=== PATIENT | male | born 1980 | race Caucasian/White ===

== ENCOUNTER → 2024-03-16 07:33 | Outpatient (CLI) | payer OTHER, SELFPAY ==
[2024-03-16 08:37] LABS: Influenza A - CEPHEID Flu A NEGATIVE (NEGATIVE); Influenza B - CEPHEID Flu B NEGATIVE (NEGATIVE); Respiratory Syncytial Virus Negative (Negative)
[2024-03-16 08:43] LABS: COVID-19 CEPHEID 4-PLEX PCR POSITIVE (Negative)
== END ==
PROVIDERS: Referring Provider Nurse Practitioner Family; Visit Provider Nurse Practitioner Family
DX: R50.9 Fever, unspecified (principal); J02.9 Acute pharyngitis, unspecified
CPT/HCPCS: 0241U; 87070

== ENCOUNTER → 2024-06-13 15:13 | Outpatient (CLI) | payer OTHER, SELFPAY ==
--- NOTE | 2024-06-13 15:15 | DI.MRI.S_ITS ---
PROCEDURE: MR KNEE LT WO CON INDICATIONS: tear of medial meniscus TECHNIQUE: Noncontrast sagittal PD fast spin echo and T2 fast spin echo with fat saturation, sagittal 3-D FLASH with fat saturation; coronal T1 spin echo and PD fast spin echo with fat saturation, and axial PD fast spin echo with fat saturation through the knee. COMPARISON: None. FINDINGS: Image quality: Excellent. Menisci: In the medial meniscus, there is horizontal longitudinal tear of the posterior horn, extending to a complex tear of the meniscus body. No extrusion of the medial meniscus body. The lateral meniscus is unremarkable. Cruciate ligaments: The anterior and posterior cruciate ligaments appear intact. Medial structures: The medial collateral ligament appears intact. The posterior oblique ligament, semimembranosus tendon insertions, oblique popliteal ligament, and meniscocapsular junction appear intact. Visualized portions of the pes anserinus tendons appear normal. No abnormal bursal fluid. Lateral structures: The lateral collateral ligament, long and short heads of the biceps femoris tendon appear intact. The popliteus tendon appears normal; the popliteofibular ligament appears intact. The posterosuperior and anteroinferior popliteomeniscal fascicles appear intact. The arcuate and fabellofibular ligaments appear intact, on either side of the lateral inferior geniculate artery. Iliotibial band appears normal. Anterior structures: The distal quadriceps tendon is unremarkable. Mild tendinosis of the proximal patellar tendon. Lateral tilt of the patella. The lateral and medial patellofemoral ligaments are intact. No Hoffa's fat pad edema. Bones and cartilage: There is multifocal high-grade chondral irregularity and high-grade chondral fissuring in the medial patellar facet and median ridge, with marked marrow edema in the medial patellar facet and the median ridge, extending to the lateral compartment predominant tricompartmental osteoarthritis patellar facet. Cartilage of the trochlea is unremarkable. In the medial compartment, there is mild chondral thinning in the weight-bearing portion of the medial femoral condyle. Mild subchondral marrow edema in the peripheral aspect of the medial femoral condyle and the medial tibial plateau, favor reactive. Cartilage of the lateral compartment is well maintained. No acute fracture. A T1 hypointense lesion with central mild T2 hyperintensity in the distal femur, nonspecific but favors benign etiology. Joint space: Small knee effusion. Small popliteal cyst. Popliteal vasculature is unremarkable. No intra-articular body. IMPRESSION: 1. Complex tear of the medial meniscus with mild reactive marrow edema. 2. Mild chondrosis of the patellofemoral compartment with marked marrow edema in the patella. 3. Mild chondrosis of the medial compartment. Dictated by: Carmina Marcos M.D. on 06/13/2024 at 16:24 Approved by: Carmina Marcos M.D. on 06/13/2024 at 16:35
== END ==
PROVIDERS: Referring Provider Orthopaedic Surgery; Visit Provider Orthopaedic Surgery
DX: S83.232A Complex tear of medial meniscus, current injury, left knee, initial encounter (principal); M23.204 Derangement of unspecified medial meniscus due to old tear or injury, left knee; M22.42 Chondromalacia patellae, left knee; M71.22 Synovial cyst of popliteal space [Baker], left knee; M25.462 Effusion, left knee
CPT/HCPCS: 73721

== ENCOUNTER 2024-10-20 11:30 | Outpatient (RCR) | payer OTHER, SELFPAY ==
--- NOTE | 2024-09-30 12:37 | PT.OPPOC ---
Physical, Occupational & Speech Therapy At [facility] Current Diagnoses Other tear of medial meniscus, current injury, left knee, subsequent encounter (09/30/24) Visit Care Team Role Provider Type Tammie Garduno MD Primary Care Provider Physician Specialty: Family Practice AIRPLANE [employer]UELER Address: [address] [place] [address], [id number] Email: [email or web address] Doctor Tenzin MD Family Provider Non-Staff Specialty: Medical Address: Phone: Fax: Email: Vivi Dawkins MD Attending Provider Physician Referring Provider Specialty: Orthopedics Orthopedic Surgery Address: [address] [place] [address], [id number] Email: [email or web address] Plan Of Care PT OP: Lower Back/Lower Extremity Start: 09/30/24 10:31 Freq: Status: Active Protocol: Document 09/30/24 10:31 BL (Rec: 09/30/24 12:36 BL Laptop) Out-Patient Physical Therapy Visit Information Visit Information Visit Type Initial Evaluation Visit Note post up follow up: Visit Start Time 11:30 Visit Stop Time 12:10 Visit Number (1) 110 Number of PRESCRIPTION EYEGLASS MAKER Visits 0 Progress Note Due 10/30/24 Precautions Precautions R medial meniscectomy on 09/19/24. Activity per pt tolerance. OP-PT Subjective Patient Comments Patient Comments Pt presents to the clinic this date s/p L medial meniscectomy on 09/19/24 without AD. Pt reports stiffness through L posterior knee. Reports numbness on lateral side of knee and stiffness above and below knee. Reports difficulty with going up and down steps as well as squating. Attempted to kneel on his knee and this caused a considerable amount of pain. Pt continues to notice increased pain, sleeping at night if laying on his L side with his R knee touching his L knee. Pt reports he has not been icing or elevating much in the past week. Patient Reported Improving Progress Patient Questionnaires Lower Extremity Functional Scale LEFS Score 34 function Posture Evaluation Comments Posture Comments pt demos grossly neutral posture. Incisions healing well with swelling noted though L knee circumferential measurements: mid patella L 37, R 36 Palpation Assessment Location L knee Palpation Details tenderness noted above and below patella and lateral distal hamstring attachment. Knee Goniometric Range of Motion Knee Measured in Degrees Right Flexion Active ( 138 degrees) Extension Active ( 0 degrees) Left Flexion Active ( 122 degrees) Extension Active ( 2 degrees) Knee Strength Knee Manual Muscle Testing Right Flexion (S2) 5 Normal Extension (L3) 5 Normal Left Flexion (S2) 4 Good Extension (L3) 4+ Good+ Therapeutic Exercises Supine Exercises strength Supine Exercise Name Quad sets, Bridges ROM Supine Exercise Name knee flexion on SB, Physical Therapy Assessment Rehab Potential Rehabilitation Good Potential Evaluation Complexity Number of Personal 1-2 Factors/ Comorbidities Number of Body 3 Systems Impaired Clinical Evolving Presentation at Evaluation Impairments Impairments Activity Tolerance,Balance,Edema,Functional Activities, Functional Mobility,Gait,Pain,Posture,Soft Tissue Mobility,Strength,Transfers Goals Three Cube Cutter Goal (LTG) Pt will demo improved LEFS score to 60 function or better by DC for improved quality of life. Two Shelter Goal (LTG) Pt will be able to preform body weight squat without increase in symptoms by DC for return to weight lifting activities. 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 Cube Cutter Goal (LTG) Pt will report being able to knee on his L knee for 10 minutes without increase in symptoms by DC for completion of job duties. Assessment Summary Assessment Pt presents s/p L medial meniscectomy and demos decreased AROM into flexion and extension. Pt demos decreased strength along with increased swelling and limitations in functional mobility. Pt will benefit from skilled Physical Therapy intervention for strength and endurance training in order to return to PLOF. Physical Therapy Plan Frequency and Duration Frequency of 1x/Week Treatment Duration of 8 treatment (weeks) Plan of Care Start 09/30/24 Date Plan of Care End 11/25/24 Date Therapeutic Interventions Therapeutic Balance Training,Coordination Training,Gait Training, Interventions Home Exercise Program,Joint Mobilizations,Manual Therapy,Neuromuscular Re-education,Orthotic/Prosthetic Management,Patient/Caregiver Education,Self-Care/Home Management,Sensory Integration,Soft Tissue Mobilization ,Taping,Therapeutic Activities,Therapeutic Exercises Modalities Cold Pack/Ice Massage,Electric Stimulation,Hot Packs, Infrared Therapy,Iontophoresis,Ultrasound Next Visit Focus/Plan Next Note Type Treatment Note Next Visit Plan Advance HEP for L knee AROM and stability within pt tolerance Plan of Care Dates Plan of Care Start Date 09/30/24 Plan of Care End Date 11/25/24 Electronically Signed by: Robson Medellin, PT 09/30/24 3053 If you are in agreement with this Plan of Care, please return a signed and dated copy. I have reviewed this Plan of Care and certify that the skilled therapy services above are required to meet the patient?s needs. Physician Signature Date Printed Name and Credentials Clinical Instructor Signature Printed Name and Credentials
--- NOTE | 2024-10-06 12:17 | PT.OTN ---
Current Diagnoses Other tear of medial meniscus, current injury, left knee, subsequent encounter (10/06/24) Physical Therapy Treatment Note PT OP: Lower Back/Lower Extremity Start: 09/30/24 10:31 Freq: Status: Active Protocol: Document 10/06/24 11:32 BL (Rec: 10/06/24 12:17 BL Laptop) Out-Patient Physical Therapy Visit Information Visit Information Visit Type Treatment Note Visit Note post up follow up: Visit Start Time 11:30 Visit Stop Time 12:10 Visit Number (2) 2/10 Number of MEDICAL ONCOLOGY PHYSICIAN Visits 0 Progress Note Due 10/30/24 Precautions Precautions R medial meniscectomy on 09/19/24. Activity per pt tolerance. OP-PT Subjective Patient Comments Patient Comments Pt presents to the clinic this date and reports he is doing well, states he is doing well, was able to walk a mile without much discomfort states he did notice it was tire following. Report numbness on the side of the leg is the same, states he feels tightness under the incision sites. Therapeutic Exercises Supine Exercises strength Supine Exercise Name Quad sets, Bridges ROM Supine Exercise Name knee flexion on SB, Standing Exercises strength Standing Exercise Lateral step ups, HR with gastroc and soleus focus, Name squat taps from bench Comments 2x10 ea Manual Therapy Treatment Consent Patient gave verbal Yes consent for manual treatment Soft Tissue Mobilization scar massage Comments pt educated in self scar massage, increased deep tension noted below scar. Physical Therapy Assessment Goals Three Long-Term Goal (LTG) Pt will demo improved LEFS score to 60 function or better by DC for improved quality of life. Two Long-Term Goal (LTG) Pt will be able to preform body weight squat without increase in symptoms by DC for return to weight lifting activities. 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 Long-Term Goal (LTG) Pt will report being able to knee on his L knee for 10 minutes without increase in symptoms by DC for completion of job duties. Assessment Summary Assessment Pt tolerates session well, advance HEP for LE strength and stability training this session. Pt fatigued following, no increase in pain. Pt educated in scar massage with improved tissue mobility following. Continue to advance quad control and stability next session. Physical Therapy Plan Frequency and Duration Frequency of 1x/Week Treatment Duration of 8 treatment (weeks) Plan of Care Start 09/30/24 Date Plan of Care End 11/25/24 Date Next Visit Focus/Plan Next Note Type Treatment Note Next Visit Plan Advance HEP for L knee AROM and stability within pt tolerance
--- NOTE | 2024-10-13 11:31 | PT.OTN ---
Current Diagnoses Other tear of medial meniscus, current injury, left knee, subsequent encounter (10/13/24) Physical Therapy Treatment Note PT OP: Lower Back/Lower Extremity Start: 09/30/24 10:31 Freq: Status: Active Protocol: Document 10/13/24 10:46 BL (Rec: 10/13/24 11:30 BL Laptop) Out-Patient Physical Therapy Visit Information Visit Information Visit Type Treatment Note Visit Note post up follow up: 11/03/24 Visit Start Time 11:30 Visit Stop Time 12:10 Visit Number (2) 2/10 Number of MARKETING SUMMER INTERN Visits 0 Progress Note Due 10/30/24 Precautions Precautions R medial meniscectomy on 09/19/24. Activity per pt tolerance. OP-PT Subjective Patient Comments Patient Comments Pt presents to the clinic this date and reports he is doing well, states overall can tell his strength has improved, reports he went on a 1.5 mile hike this weekend without much difficulty. States he hopes to return to work next week. Therapeutic Exercises Standing Exercises Leg Press Standing Exercise 125 D, 100 SL Name shuttle Standing Exercise lateral shift, squatting Name Comments 2x 10 strength2 Standing Exercise cone taps, single leg lift, Bosu Lunges Name strength Standing Exercise Lateral step ups, HR with gastroc and soleus focus, Name lunges Comments 2x10 ea Physical Therapy Assessment Goals Three Social Science Analyst Goal (LTG) Pt will demo improved LEFS score to 60 function or better by DC for improved quality of life. Two Long-Term Goal (LTG) Pt will be able to preform body weight squat without increase in symptoms by DC for return to weight lifting activities. One Short Term Goal (STG pt will be ind with HEP within 2 visits in order to ) progress toward nursing home therapy goals outside of therapy visits. Social Science Analyst Goal (LTG) Pt will report being able to knee on his L knee for 10 minutes without increase in symptoms by DC for completion of job duties. Assessment Summary Assessment Pt tolerates session well, advance HEP for LE strength and stability training this session. Pt fatigued following, no increase in pain. Continue to focus on dynamic stability. Physical Therapy Plan Frequency and Duration Frequency of 1x/Week Treatment Duration of 8 treatment (weeks) Plan of Care Start 09/30/24 Date Plan of Care End 11/25/24 Date Next Visit Focus/Plan Next Note Type Treatment Note Next Visit Plan Advance HEP for L knee AROM and stability within pt tolerance
--- NOTE | 2024-10-20 12:01 | PT.OPDS ---
Current Diagnoses Other tear of medial meniscus, current injury, left knee, subsequent encounter (10/20/24) Visit Care Team Role Provider Type Tammie Garduno MD Primary Care Provider Physician Specialty: Family Practice BLOCK SAWYER Address: [facility] [place], [address] Email: [email or web address] Doctor Tenzin MD Family Provider Non-Staff Specialty: Medical Address: Phone: Fax: Email: Vivi Dawkins MD Attending Provider Physician Referring Provider Specialty: Orthopedics Orthopedic Surgery Address: [address] [place] [address], [id number] Email: [email or web address] Visit Number Visit Number (2) 03/28 Discharge Summary PT OP: Lower Back/Lower Extremity Start: 09/30/24 10:31 Freq: Status: Active Protocol: Document 10/20/24 11:31 BL (Rec: 10/20/24 12:01 BL Laptop) Out-Patient Physical Therapy Visit Information Visit Information Visit Type Discharge Summary Visit Note post up follow up: 11/03/24 Visit Start Time 11:30 Visit Stop Time 12:00 Visit Number (2) 2 Number of RN MILITARY Visits 0 Progress Note Due 10/30/24 Precautions Precautions R medial meniscectomy on 09/19/24. Activity per pt tolerance. OP-PT Subjective Patient Comments Patient Comments Pt presents to the clinic this date and reports he is doing well, states he feels he is back to 95% pre injury activity. States continues to have some sensativity over his L anterior knee, especially with kneeling. Feels he is ready for DC this date. Therapeutic Exercises Standing Exercises strength2 Standing Exercise cone taps, single leg lift, Bosu Lunges (reviewed) Name Physical Therapy Assessment Goals Three Alf Goal (LTG) Pt will demo improved LEFS score to 60 function or better by DC for improved quality of life. (Goal Met) : 78 function this date Two Alf Goal (LTG) Pt will be able to preform body weight squat without increase in symptoms by DC for return to weight lifting activities. (Goal Met) One Short Term Goal (STG pt will be ind with HEP within 2 visits in order to ) progress toward intermediate card tender therapy goals outside of therapy visits. (Goal Met) Terminal Superintendent Goal (LTG) Pt will report being able to knee on his L knee for 10 minutes without increase in symptoms by DC for completion of job duties. (Goal Met) Assessment Summary Assessment Pt has made great progress in skilled Physical Therapy intervention. Pt demo full AROM, and demos improved strength. Pt is able to complete all ADLS without difficulty. Pt continues to have mild discomfort with kneeling directly on his L knee for longer times. Pt continues to have mild sensitivity to the front of his knee. Pt has met all his therapy goals at this time and is adequate for DC.
== END 2024-10-24 09:57 | disposition home or self-care (01) ==
LOC: PHYS 11:30
PROVIDERS: PCP Family Medicine; Referring Provider Orthopaedic Surgery; Visit Provider Orthopaedic Surgery
DX: S83.242D Other tear of medial meniscus, current injury, left knee, subsequent encounter (principal)
CPT/HCPCS: 97110; 97140; 97162

== ENCOUNTER → 2024-12-21 09:16 | Outpatient (CLI) | payer OTHER, SELFPAY ==
[2024-12-21 10:38] LABS: Add Manual Diff / Slide Review NO; Hematocrit 49.9 % (41-53); Hemoglobin 16.9 g/dL (13.5-17.5); Lymphocytes Absolute Auto 1300 /uL (1100-4500); Mean Corpuscular HGB Conc 33.9 % (30-36); Mean Corpuscular Hemoglobin 29.3 PG (26-34); Mean Corpuscular Volume 86.3 fL (80-100); Platelet Count 280 X10^3/uL (150-400)
[2024-12-21 10:51] LABS: Alanine Aminotransferase 24 IU/L (<50); Albumin 4.3 g/dL (3.5-5.0); Albumin Globulin Ratio 1.5 (1.0-2.8); Alkaline Phosphatase 75 U/L (38-126); Blood Urea Nitrogen 7 mg/dL (9-20); Calcium 8.7 mg/dL (8.4-10.2); Carbon Dioxide 23 mmol/L (22-32); Chloride 105 mmol/L (98-107); Cholesterol 165 mg/dL (140-199); Estimated Glomerular Filt Rate > 60 mL/min (>60); Globulin 2.8 g/dL (1.7-4.1); Glucose 85 mg/dL (70-99); HDL Cholesterol 38 mg/dL (40-60); HEMOLYSIS 25 (0-50); Potassium 4.8 mmol/L (3.4-5.1); Sodium 137 mmol/L (137-145); Total Protein 7.1 g/dL (6.3-8.2); Triglycerides 110 mg/dL (35-150)
[2024-12-21 11:22] LABS: TSH w/ Reflex to FT4 3.12 uIU/mL (0.47-4.68)
== END ==
PROVIDERS: PCP Family Medicine; Referring Provider Family Medicine; Visit Provider Family Medicine
DX: R79.89 Other specified abnormal findings of blood chemistry (principal)
CPT/HCPCS: 36415; 80053; 80061; 84402; 84403; 84443; 85025